=== PATIENT | male | born 1970 | race Caucasian/White ===

== ENCOUNTER 2018-08-06 18:58 | Emergency (ER) | payer BC ==
[2018-08-06] MEDS ORDERED: Benzonatate 100 MG CAP ONE (19:40)
[2018-08-06] MEDS ORDERED: Dexamethasone 4 MG TAB ONE (19:40)
--- NOTE | 2018-08-06 20:32 | RAD ---
PA AND LATERAL CHEST: HISTORY: Cough. FINDINGS: Heart size and mediastinum are within normal limits. Lungs are clear of infiltrates. No significant bony findings. IMPRESSION: No active intrathoracic disease. POS: [facility]
== END 2018-08-06 20:13 | disposition home or self-care (01) ==
LOC: MADERS 18:58
DX: J40 Bronchitis, not specified as acute or chronic (principal); I10 Essential (primary) hypertension; F43.10 Post-traumatic stress disorder, unspecified; F41.9 Anxiety disorder, unspecified; F17.200 Nicotine dependence, unspecified, uncomplicated; Z79.899 Other long term (current) drug therapy
CPT/HCPCS: 71046; J8540

== ENCOUNTER 2018-11-25 14:44 | Emergency (ER) | payer BC, SELFPAY ==
[2018-11-25] MEDS ORDERED: Dexamethasone 10 MG/ML VIAL ONE (16:01)
== END 2018-11-25 16:15 | disposition home or self-care (01) ==
LOC: MADERS 14:44
DX: J02.9 Acute pharyngitis, unspecified (principal); J06.9 Acute upper respiratory infection, unspecified; I10 Essential (primary) hypertension; F43.10 Post-traumatic stress disorder, unspecified; F41.9 Anxiety disorder, unspecified; F17.210 Nicotine dependence, cigarettes, uncomplicated
CPT/HCPCS: 96372; J1100

== ENCOUNTER 2019-11-23 16:52 | Outpatient (CLI) | payer OTHER ==
--- NOTE | 2019-11-23 17:23 | RAD ---
TWO VIEW CHEST: 11/23/19 HISTORY: Cough and wheezing. Lungs are clear of infiltrate. Heart and mediastinum unremarkable. IMPRESSION: No acute findings. POS: [facility]
== END 2019-11-23 16:53 | disposition home or self-care (01) ==
LOC: MADRAD 16:52
PROVIDERS: ATTEND Family Medicine
DX: R05 Cough (principal)
CPT/HCPCS: 71046

== ENCOUNTER 2020-09-25 09:45 | Emergency (ER) | payer OTHER | END 2020-09-25 10:50 | disposition home or self-care (01) | LOC: MADERS 09:45 | DX: M25.531 Pain in right wrist (principal); E78.5 Hyperlipidemia, unspecified; I10 Essential (primary) hypertension; Z79.899 Other long term (current) drug therapy ==

== ENCOUNTER 2021-05-14 09:43 | Outpatient (CLI) | payer OTHER | END 2021-05-14 09:44 | disposition home or self-care (01) | LOC: MADRAD 09:43 | PROVIDERS: ATTEND Family Medicine | DX: J45.40 Moderate persistent asthma, uncomplicated (principal); J98.4 Other disorders of lung | CPT/HCPCS: 71046 ==